=== PATIENT | female | born 1995 | race Caucasian/White ===

== ENCOUNTER 2020-07-30 03:28 | Inpatient (IN) ==
[2020-07-30] MEDS ORDERED: Metoclopramide 10 MG/2 ML VIAL IVP PRN (03:29)
[2020-07-30] MEDS ORDERED: Lidocaine 1% 20 ML MDV INFILT PRN (03:29)
[2020-07-30] MEDS ORDERED: *HR* Nalbuphine 10 MG/ML AMPUL IV PRN (03:29)
[2020-07-30] MEDS ORDERED: Famotidine 20 MG/2 ML VIAL IVP PRN (03:29)
[2020-07-30] MEDS ORDERED: Ondansetron 4 MG/2 ML VIAL IVP PRN (03:29)
[2020-07-30] MEDS ORDERED: Naloxone 0.4 MG/ML INJ IVP PRN (03:29)
[2020-07-30] MEDS ORDERED: Ringers Solution, Lactated 1,000 ML IVC SCH (03:30)
[2020-07-30] MEDS ORDERED: miSOPROStoL 25 MCG TABLET PO PRN (04:00)
[2020-07-30 04:49] LABS: Amphetamine Screen,Urine Negative ng/mL (Cutoff=1000); Barbiturate Screen,Urine Negative ng/mL (Cutoff=200); Benzodiazepines Screen,Urine Negative ng/mL (Cutoff=200); Cannabinoid Screen,Urine Negative ng/mL (Cutoff = 50); Cocaine Screen,Urine Negative ng/mL (Cutoff= 300); Opiate Screen,Urine Negative ng/mL (Cutoff=300); Phencyclidine Screen,Urine Negative ng/mL (Cutoff=25)
[2020-07-30 04:50] LABS: Basophils % 0.2 %; Eosinophils % 0.1 %; Hematocrit 31.7 % (35.3-44.9); Hemoglobin 9.8 g/dL (11.5-15.4); Immature Granulocytes % 0.6 % (0-4); Lymphocytes # 3.1 K/mcL (0.6-4.6); Lymphocytes % 19.7 %; Mean Corpuscular HGB Conc 30.9 g/dL (31.6-35.5); Mean Corpuscular Hemoglobin 23.2 pg (28.0-33.3); Mean Corpuscular Volume 74.9 fL (83.0-100.0); Mean Platelet Volume 9.2 fL (9.4-12.4); Monocytes # 0.8 K/mcL (0.0-1.3); Neutrophils # 11.6 K/mcL (1.6-8.9); Platelet Count 316 K/mcL (140-400); Red Blood Count 4.23 M/mcL (3.82-4.97); Red Cell Distribution Width 14.8 % (11.5-14.5); Segmented Neutrophils % 74.4 %; White Blood Count 15.7 K/mcL (4.3-11.1)
[2020-07-30] MEDS ORDERED: EPHEDrine 50 MG/ML VIAL IVP PRN (06:55)
[2020-07-30] MEDS ORDERED: Epidural Premix (fent/bupiv) 110 ML EP SCH (07:00)
[2020-07-30] MEDS ORDERED: Oxytocin 20 units/ LR 1000 mL 20 UNIT/1,000 ML BAG IVC SCH (08:45)
[2020-07-30 13:34] LABS: Adenovirus Not Detected (Not Detect); Bordetella Pertussis Not Detected (Not Detect); Chlamydophila pneumoniae Not Detected (Not Detect); Coronavirus 229E Not Detected (Not Detect); Coronavirus HKU1 Not Detected (Not Detect); Coronavirus NL63 Not Detected (Not Detect); Coronavirus OC43 Not Detected (Not Detect); Human Metapneumovirus Not Detected (Not Detect); Human Rhinovirus/Enterovirus Not Detected (Not Detect); Influenza A Subtype 2009 H1 Not Detected (Not Detect); Influenza B Not Detected (Not Detect); Mycoplasma pneumoniae Not Detected (Not Detect); Parainfluenza Virus 1 Not Detected (Not Detect); Parainfluenza Virus 2 Not Detected (Not Detect); Parainfluenza Virus 3 Not Detected (Not Detect); Parainfluenza Virus 4 Not Detected (Not Detect); Respiratory Syncytial Virus Not Detected (Not Detect); SARS-CoV-2 Not Detected (Not Detect)
[2020-07-30] MEDS ORDERED: Ropivacaine/PF 0.2% 20 ML VIAL ONE (21:41)
[2020-07-30] MEDS ORDERED: *HR* Ropivacaine/PF 0.5% 20 ML VIAL ONE (21:41)
[2020-07-31] MEDS ORDERED: *HR* FentaNYL (PF) 100 MCG/2 ML VIAL ONE (03:08)
[2020-07-31 06:37] LABS: Basophils % 0.1 %; Hematocrit 27.8 % (35.3-44.9); Hemoglobin 8.6 g/dL (11.5-15.4); Immature Granulocytes % 0.6 % (0-4); Lymphocytes # 1.2 K/mcL (0.6-4.6); Lymphocytes % 5.8 %; Mean Corpuscular HGB Conc 30.9 g/dL (31.6-35.5); Mean Corpuscular Hemoglobin 23.7 pg (28.0-33.3); Mean Corpuscular Volume 76.6 fL (83.0-100.0); Mean Platelet Volume 9.4 fL (9.4-12.4); Monocytes # 1.1 K/mcL (0.0-1.3); Monocytes % 5.3 %; Neutrophils # 18.4 K/mcL (1.6-8.9); Platelet Count 319 K/mcL (140-400); Red Blood Count 3.63 M/mcL (3.82-4.97); Red Cell Distribution Width 14.7 % (11.5-14.5); Segmented Neutrophils % 88.2 %; White Blood Count 20.9 K/mcL (4.3-11.1)
[2020-07-31] MEDS ORDERED: Benzocaine/Menthol 56 GM AEROSOL SPRAY TP PRN (07:47)
[2020-07-31] MEDS ORDERED: Rho Immune Globulin 1,500 UNIT SYRINGE IM PRN (07:47)
[2020-07-31] MEDS ORDERED: Measles/Mumps/Rubella Vacc 0.5 ML VIAL SQ PRN (07:47)
[2020-07-31] MEDS ORDERED: *HR* HYDROcodone/Acet 5/325 mg TABLET PO PRN (07:47)
[2020-07-31] MEDS ORDERED: Acetaminophen 325 MG TABLET PO PRN (07:47)
[2020-07-31] MEDS ORDERED: Lanolin 7 G OINT...G. TP PRN (07:47)
[2020-07-31] MEDS ORDERED: Oxytocin 20 units/ LR 1000 mL 20 UNIT/1,000 ML BAG IVC SCH (07:47)
[2020-07-31] MEDS: Prenatal Vit/FA 1 EACH TABLET PO SCH (11:26)
[2020-07-31] MEDS: Ibuprofen 600 MG TABLET PO PRN ×2 (11:27→17:57)
[2020-07-31 14:09] LABS: Mean Platelet Volume 9.2 fL (9.4-12.4)
[2020-07-31 14:11] LABS: Hematocrit 22.3 % (35.3-44.9); Hemoglobin 6.8 g/dL (11.5-15.4); Mean Corpuscular HGB Conc 30.5 g/dL (31.6-35.5); Mean Corpuscular Hemoglobin 23.1 pg (28.0-33.3); Mean Corpuscular Volume 75.9 fL (83.0-100.0); Platelet Count 271 K/mcL (140-400); Red Blood Count 2.94 M/mcL (3.82-4.97); Red Cell Distribution Width 14.7 % (11.5-14.5); White Blood Count 28.6 K/mcL (4.3-11.1)
[2020-07-31 14:30] LABS: Lymphocytes # 2.3 K/mcL (0.6-4.6); Monocytes # 1.1 K/mcL (0.0-1.3); Neutrophils # 25.2 K/mcL (1.6-8.9); Platelet Estimate Normal (Normal)
[2020-07-31 14:31] LABS: Anisocytosis 1+ (Not Present)
[2020-07-31] MEDS ORDERED: 0.9 % Sodium Chloride 500 ML ONE ×2 (15:43→21:59)
[2020-07-31] MEDS ORDERED: 0.9 % Sodium Chloride 250 ML IVC SCH (15:45)
[2020-08-01] MEDS: Ibuprofen 600 MG TABLET PO PRN ×2 (01:44→13:37)
[2020-08-01 05:17] LABS: Basophils % 0.1 %; Eosinophils % 0.1 %; Hematocrit 23.3 % (35.3-44.9); Hemoglobin 7.4 g/dL (11.5-15.4); Immature Granulocytes % 0.8 % (0-4); Lymphocytes # 3.8 K/mcL (0.6-4.6); Lymphocytes % 19.3 %; Mean Corpuscular HGB Conc 31.8 g/dL (31.6-35.5); Mean Corpuscular Hemoglobin 24.7 pg (28.0-33.3); Mean Corpuscular Volume 77.7 fL (83.0-100.0); Mean Platelet Volume 9.2 fL (9.4-12.4); Monocytes # 1.2 K/mcL (0.0-1.3); Neutrophils # 14.5 K/mcL (1.6-8.9); Platelet Count 225 K/mcL (140-400); Red Cell Distribution Width 14.5 % (11.5-14.5); Segmented Neutrophils % 73.7 %; White Blood Count 19.7 K/mcL (4.3-11.1)
[2020-08-01] MEDS: Prenatal Vit/FA 1 EACH TABLET PO SCH (08:00)
[2020-08-01] MEDS ORDERED: Ferumoxytol 510 MG in 0.9 % Sodium Chloride 100 ML IVPB ONE (12:14)
[2020-08-01 15:57] VITALS: BP 114/79
== END 2020-08-01 16:14 | disposition home or self-care (01) | DRG 768 ==
LOC: 1NENULAB 03:28 → 1NENUOBS 07-31 09:33
PROVIDERS: ADMIT Obstetrics & Gynecology; ATTEND Obstetrics & Gynecology